=== PATIENT | female | born 1965 | race Caucasian/White ===

== ENCOUNTER → 2016-05-31 | Outpatient (CLI) | payer OTHER ==
[~2016-05-31] MED LIST: FRC; LISI-787 PO; MELA3TAB PO; NORETAB29 PO
== END | disposition home or self-care (01) ==
LOC: C.PAPS 09:02
PROVIDERS: ATTEND Obstetrics & Gynecology
DX: Z01.411 Encounter for gynecological examination (general) (routine) with abnormal findings (principal); R87.610 Atypical squamous cells of undetermined significance on cytologic smear of cervix (ASC-US)

== ENCOUNTER → 2016-07-20 | Outpatient (CLI) | payer OTHER ==
--- NOTE | 2016-07-20 13:18 | MAMMOGRAPHY REPORT ---
UNILATERAL RIGHT DIGITAL DIAGNOSTIC MAMMOGRAM TOMOSYNTHESIS WITH CAD AND TARGETED RIGHT ULTRASOUND: 07/20/2016 CLINICAL HISTORY: 50-year-old woman presents for follow-up in the right breast for probably benign a symmetries and several benign-appearing solid versus cystic masses on ultrasound. TECHNIQUE: Right breast tomosynthesis in addition to standard 2D mammography was performed. Current study was also evaluated with a Computer Aided Detection (CAD) system. COMPARISON: Comparison is made to exams dated: 01/20/2016 ultrasound, 01/20/2016 mammogram, 016 mammogram, 01/10/2015 mammogram, 09/13/2013 mammogram, and 09/07/2013 mammogram - [facility] [address] BREAST COMPOSITION: The tissue of the right breast is extremely dense, which lowers the sensitivity of mammography. FINDINGS: The parenchymal pattern is similar to prior exams. An asymmetry is still identified in th e far posterior right breast, along the posterior nipple line on the CC view, that appears similar d ating back to at least 09/07/2013. With 3 years of stability this is most likely benign. No obviou s new irregular or spiculated mass, focal area of architectural distortion or suspicious microcalcif ications are seen. Real-time high-resolution ultrasound was performed in the 11:00, 12:00 and 6:00 axes of the right br east to reevaluate the benign-appearing solid versus cystic masses as seen on prior ultrasound. In the 6:00 right breast, 1 cm from the nipple, there is an oval parallel circumscribed isoechoic and s lightly hypoechoic solid-appearing mass measuring 5.9 x 3.2 x 6.3 mm, previously 5.5 x 3.9 x 6.5 mm. This is considered unchanged. In the 12:00 right breast, 1 cm from the nipple, there is a lobulat ed hypoechoic solid versus cystic mass measuring 6.1 x 3.3 x 4.8 mm, previously 8.6 x 3.6 x 7.2 mm, and this is slightly decreased in size. In the 12:00 periareolar right breast there is a rounded hy poechoic solid versus cystic mass measuring 3.2 x 2.6 x 3.9 mm, previously 3.6 x 2.8 x 4.6 mm. This is also slightly decreased in size. In the 11:00 right breast, 2 cm from the nipple, there is a lo bulated hypoechoic solid versus cystic mass measuring 5.3 x 3.2 x 5.8 mm, previously 6.2 x 3.2 x 5.1 mm. This is considered unchanged. Incidentally seen in the 9:00 right breast, 4 cm from the nippl e is another isoechoic to hypoechoic solid versus cystic mass measuring 4.0 x 3.0 x 4.2 mm, similar in appearance to the other masses seen in the 6:00, 11:00 and 12:00 axes. These masses could repres ent complicated cysts, fibroadenomas or benign papillomas. However, longer stability is needed and repeat targeted ultrasound in the right breast is recommended in 6 months. IMPRESSION: ACR-BI-RADS CATEGORY 3: PROBABLY BENIGN, TARGETED ULTRASOUND ACR-BI-RADS CATEGORY 3: OR OBABLY BENIGN 1. Stable mammographic appearance of the right breast. Stable to slightly decreased, benign-appear ing solid versus cystic masses in the 11:00, 12:00 and 6:00 axes of the right breast on ultrasound. Another similar appearing mass is seen in the 9:00 axis on the current ultrasound. Although these masses could represent complicated cysts, benign fibroadenomas or benign papillomas, longer stabilit y is needed and repeat targeted ultrasound throughout the right breast in the 6:00, 9:00, 11:00 and 12:00 axes is recommended in 6 months. Annual bilateral mammography will be due at that time. These results and recommendations were discussed with the patient at the time of the exam. Approximately 10% of breast cancers are not detected with mammography. A negative mammographic repor t should not delay biopsy if a clinically suggestive mass is present. Kya Mantilla M.D. ay/:07/20/2016 08:59:01 Director Of Recruitment: Radha DE LA GARZA)(Pinky), [facility] letter sent: Follow Up Recommended 3 BI-RADS Code: ACR-BI-RADS Category 3: Probably Benign Ultrasound BI-RADS: ACR-BI-RADS Category 3: P robably Benign
== END | disposition home or self-care (01) ==
LOC: C.MAMM 07:50
PROVIDERS: ATTEND Obstetrics & Gynecology
DX: N63 Unspecified lump in breast (principal)

== ENCOUNTER → 2016-07-30 | Outpatient (CLI) | payer OTHER ==
[2016-07-30 09:55] LABS: CALCIUM 9.5 mg/dl (8.5-10.1)
[2016-07-30 09:57] LABS: BLOOD UREA NITROGEN 19 mg/dl (7-18); BUN/CREATININE RATIO 26.9 (10-20); CARBON DIOXIDE 27 mmol/L (21-32); CHLORIDE 104 mmol/L (98-107); CHOLESTEROL 202 mg/dl (0-200); CREATININE 0.72 mg/dl (0.60-1.20); GLUCOSE 87 mg/dl (70-99); POTASSIUM 3.8 mmol/L (3.5-5.1); SODIUM 138 mmol/L (136-145); TRIGLYCERIDES 60 mg/dl (0-150); VERY LOW DENSITY LIPOPROT CALC 12 mg/dl
[2016-07-30 10:00] LABS: CHOLESTEROL/HDL RATIO 2.7; HDL CHOLESTEROL 74 mg/dl; LDL CHOLESTEROL CALCULATED 116 mg/dl
== END | disposition home or self-care (01) ==
LOC: C.LAB1850 07:05
PROVIDERS: ATTEND Internal Medicine
DX: I10 Essential (primary) hypertension (principal)

== ENCOUNTER → 2017-01-19 | Outpatient (CLI) | payer OTHER ==
--- NOTE | 2017-01-20 07:48 | MAMMOGRAPHY REPORT ---
BILATERAL DIGITAL DIAGNOSTIC MAMMOGRAM TOMOSYNTHESIS WITH CAD AND TARGETED RIGHT ULTRASOUND: 01/20/20 17 CLINICAL HISTORY: Short interval follow-up of right breast masses. Due for routine mammography of th e left breast. The patient reports no current complaints. TECHNIQUE: Breast tomosynthesis in addition to standard 2D mammography was performed. Current study was also evaluated with a Computer Aided Detection (CAD) system. Bilateral CC and MLO 2-D and tomosy nthesis images were obtained. COMPARISON: Comparison is made to exams dated: 07/20/2016 mammogram, 01/20/2016 ultrasound, 6 mammogram, 01/14/2016 mammogram, 01/10/2015 mammogram, and 09/13/2013 mammogram - [facility]. BREAST COMPOSITION: The tissue of both breasts is extremely dense, which lowers the sensitivity of m ammography. FINDINGS: There are no suspicious masses, calcifications, or areas of architectural distortion noted in either breast. There has been no significant interval change mammographic compared to prior exams . Targeted ultrasound was performed of the area of the previously seen right breast masses for which fo llow-up was recommended. In the right breast at 6:00, 1 cm from the nipple, again noted is an oval p arallel circumscribed slightly hypoechoic mass which measures 5 x 3 x 4 mm, and is not significantly changed dating back to the January 2016 exam. In the right 12:00 breast, 1 cm from the nipple, there is a lobulated hypoechoic circumscribed mass which measures 6 x 4 x 5 mm, and is stable to slightly decreased compared to the January 2016 exam. In the right 12:00 periareolar breast, again noted is a circumscribed hypoechoic 4 x 3 x 4 mm mass, which is not significantly changed dating back to the 2015 exam. In the right breast at 11:00, 2 cm from the nipple, again noted is a circumscribed hypoechoic 6 x 3 x 5 mm mass, also unchanged compared to the January 2016 exam. In the right breast at 9:00, 4 cm from the nipple, there is a similar-appearing slightly hypoechoic circumscribed 4 x 3 x 4 mm mass, which is stable compared to the July 2016 exam. The masses are all similar in appearanc e and are probably benign and may represent complicated cysts or benign-appearing solid masses such a s fibroadenomas. IMPRESSION: ACR-BI-RADS CATEGORY 3: PROBABLY BENIGN, TARGETED ULTRASOUND ACR-BI-RADS CATEGORY 3: PRO BABLY BENIGN 1. No mammographic evidence of malignancy in either breast. 2. Similar-appearing circumscribed hypoechoic masses in the right 6:00, 9:00, 11:00, and 12:00 breas t on ultrasound are stable compared to the prior July 2016 and January 2016 exams and are probably b enign. Recommend follow-up targeted ultrasound in 12 months to confirm longer stability. Annual santiago ateral mammography can be performed at that time. The patient has been verbally notified of the results. Approximately 10% of breast cancers are not detected with mammography. A negative mammographic report should not delay biopsy if a clinically suggestive mass is present. Nanci Rodriguez M.D. ah/:01/19/2017 08:41:24 Body Mechanic: Cathleen MAYNARD(R)(M), [facility] letter sent: Follow Up Recommended 3 BI-RADS Code: ACR-BI-RADS Category 3: Probably Benign Ultrasound BI-RADS: ACR-BI-RADS Category 3: Pr obably Benign
== END | disposition home or self-care (01) ==
LOC: C.MAMM 08:03
PROVIDERS: ATTEND Obstetrics & Gynecology
DX: N63.10 Unspecified lump in the right breast, unspecified quadrant (principal)

== ENCOUNTER → 2017-04-01 | Outpatient (CLI) | payer OTHER ==
[2017-04-01 11:26] LABS: BLOOD UREA NITROGEN 19 mg/dl (7-18); CALCIUM 9.3 mg/dl (8.5-10.1); CARBON DIOXIDE 26 mmol/L (21-32); GLUCOSE 85 mg/dl (70-99); POTASSIUM 3.8 mmol/L (3.5-5.1); SODIUM 136 mmol/L (136-145)
== END | disposition home or self-care (01) ==
LOC: C.LAB1850 09:39
PROVIDERS: ATTEND Internal Medicine
DX: I10 Essential (primary) hypertension (principal)

== ENCOUNTER → 2017-06-03 | Outpatient (CLI) | payer OTHER | END | disposition home or self-care (01) | LOC: C.PAPS 11:21 | PROVIDERS: ATTEND Obstetrics & Gynecology | DX: R87.610 Atypical squamous cells of undetermined significance on cytologic smear of cervix (ASC-US) (principal) ==

== ENCOUNTER → 2017-06-23 | Outpatient (CLI) | payer OTHER ==
[2017-06-23 09:37] LABS: BASO % 0.7 %; BASO ABS # 0.04 K/uL (0-0.2); EOS % 1.9 %; EOS ABS # 0.11 K/uL (0-0.5); HEMATOCRIT 41.7 % (37-47); HEMOGLOBIN 14.1 g/dL (12.0-16.0); IG# 0.01 K/uL (0.00-0.02); LYMPH % 33.3 %; LYMPH ABS # 1.94 K/uL (1.2-3.4); MEAN CELL VOLUME 89.5 fL (80-100); MEAN CORPUSCULAR HEMOGLOBIN 30.3 pg (25-34); MEAN CORPUSCULAR HGB CONC 33.8 g/dl (32-36); MONO ABS # 0.58 K/uL (0.11-0.59); NEUT % 53.9 %; NEUT ABS # 3.14 K/uL (1.4-6.5); PLATELET COUNT 381 K/uL (130-400); RED CELL DISTRIBUTION WIDTH CV 13.1 % (11.5-14.5); RED CELL DISTRIBUTION WIDTH SD 42.7 fL (36.4-46.3); WHITE BLOOD COUNT 5.82 K/uL (4.8-10.8)
[2017-06-23 09:54] LABS: ALBUMIN 3.8 gm/dl (3.4-5.0); BLOOD UREA NITROGEN 14 mg/dl (7-18); CALCIUM 9.4 mg/dl (8.5-10.1); CARBON DIOXIDE 26 mmol/L (21-32); CREATININE 0.65 mg/dl (0.60-1.20); GLUCOSE 91 mg/dl (70-99); POTASSIUM 3.5 mmol/L (3.5-5.1); SODIUM 136 mmol/L (136-145)
[2017-06-23 10:03] LABS: ALKALINE PHOSPHATASE 54 U/L (45-117); ALT/SGPT 25 U/L (12-78); AST/SGOT 12 U/L (15-37); CHOLESTEROL 190 mg/dl (0-200); LDL CHOLESTEROL CALCULATED 103 mg/dl; TOTAL PROTEIN 7.2 gm/dl (6.4-8.2)
== END | disposition home or self-care (01) ==
LOC: C.LAB1850 07:27
PROVIDERS: ATTEND Internal Medicine
DX: R22.1 Localized swelling, mass and lump, neck (principal); I10 Essential (primary) hypertension

== ENCOUNTER → 2017-07-01 | Outpatient (CLI) | payer OTHER ==
--- NOTE | 2017-07-01 16:21 | DIAGNOSTIC IMAGING REPORT ---
ULTRASOUND OF THE THYROID GLAND CLINICAL HISTORY: Neck mass. COMPARISON STUDY: No priors. TECHNIQUE: Real-time, grayscale, and color flow sonography of the thyroid gland is performed utilizing a high-frequency linear transducer. Images are reviewed in the transverse and longitudinal planes. FINDINGS: Right lobe: The right lobe of the thyroid gland is mildly enlarged and homogeneous in echotexture, measuring 5.1 x 2.4 x 3.4 cm. A dominant heterogeneous solid nodule in the midpole measures 4.5 x 2.3 x 3.0 cm. Internal flow is seen on color imaging. Left lobe: The left lobe of the thyroid gland is normal in size and homogeneous in echotexture, measuring 4.9 x 1.2 x 1.4 cm. A 3 mm colloid cyst is incidentally noted in the midpole. Isthmus: The thyroid isthmus is normal in appearance and measures 0.4 cm in AP diameter. IMPRESSION: There is a dominant solid nodule in the right thyroid lobe measuring up to 4.5 cm, which corresponds to the finding of palpable concern. Fine-needle aspiration of this nodule is recommended based on size criteria. Electronically signed by: Fam Torres M.D. 07/01/2017 4:19 PM Dictated Date/Time: 07/01/2017 4:18 PM
== END | disposition home or self-care (01) ==
LOC: C.ULTR 15:40
PROVIDERS: ATTEND Internal Medicine
DX: R22.1 Localized swelling, mass and lump, neck (principal); E04.1 Nontoxic single thyroid nodule

== ENCOUNTER → 2017-07-08 | Outpatient (CLI) | payer OTHER ==
--- NOTE | 2017-07-08 10:34 | Discharge Instructions ---
Discharge Instructions Procedure Procedure Date: Jul 08, 2017. Reason for visit: Solitary Thyroid Nodule,Pt Had U/S On 07/01/17. Discharge Discharge Date: Jul 08, 2017. Discharge Diagnosis: Right lobe thyroid nodule Instructions Activity Recommendations: No limitations Return to School/Work: no limitations Recommended Home Diet: Resume Previous Diet Provider Instructions: US guided fine-needle aspiration of a right lobe thyroid nodule is performed. The procedure was well tolerated. A small hematoma was present at the aspiration site post-procedure. The patient left the department in satisfactory condition. ACTIVITY RECOMMENDATIONS: * Rest today. * Resume regular activity in one day. MEDICATIONS: * May take Tylenol or Ibuprofen as needed for pain. DIET: * Resume previous diet. SPECIAL CARE INSTRUCTIONS: Call your doctor if: * Temperature above 101 degrees F. * Pain not relieved by pain medicine ordered. * Increased drainage or redness from incision. * Notify your doctor with any questions or concerns. Call your doctor or go to the nearest Emergency Department if you experience: * Increased chest pain or shortness of breath. FOLLOW UP VISIT: Follow-up with Referring Physician as scheduled. Allergies Coded Allergies: No Known Allergies (Unverified , 07/12/14) Tyrese Mcrae Recommendations: Call your doctor if: * Temperature above 101 degrees * Pain not relieved by pain medicine ordered * There is increased drainage or redness from any incision * You have any unanswered questions or concerns. Your Doctors Instructions noted above were prepared by provider Fam Torres. Patient Signature Section: Patient Instructions Signature Page Lizzy Lexi Patient (or Guardian) Signature/Date: I have read and understand the instructions given to me by my caregivers. Caregiver/RN/Doctor Signature/Date: The above-named patient and/or guardian has received patient instructions on this date. + Original Patient Signature Page (only) stays with chart. Please make copy for patient.
--- NOTE | 2017-07-08 11:13 | DIAGNOSTIC IMAGING REPORT ---
ULTRASOUND-GUIDED FINE-NEEDLE ASPIRATION THYROID CLINICAL HISTORY: Right lobe thyroid nodule. COMPARISON STUDY: Thyroid ultrasound dated 07/01/2017. PROCEDURE: The risks, benefits, and alternatives to the procedure were discussed with the patient. Written informed consent was obtained. The patient was placed supine in ultrasound, and the 4.5 x 2.2 x 3.2 cm predominantly solid nodule in the right lobe of the thyroid was localized by ultrasound and selected for fine needle aspiration. The right neck was prepped and draped in the usual sterile fashion. The nodule was aspirated under ultrasound guidance with 3 passes utilizing 25-gauge needles. Specimens were reviewed by the pathologist in real-time and deemed adequate for diagnosis. A small hematoma was noted at the aspiration site post procedure. The patient tolerated the procedure well and left the department in satisfactory condition. IMPRESSION: 1. Completed fine-needle aspiration of a right thyroid nodule as above. 2. A small hematoma was noted at the aspiration site post procedure. Electronically signed by: Fam Torres M.D. 07/08/2017 11:11 AM Dictated Date/Time: 07/08/2017 11:10 AM
== END | disposition home or self-care (01) ==
LOC: C.ULTR 09:32
PROVIDERS: ATTEND Internal Medicine
DX: E04.1 Nontoxic single thyroid nodule (principal)

== ENCOUNTER 2019-05-24 05:59 | Observation (INO) ==
[2019-05-24] MEDS ORDERED: ONDANSETRON INJ 2 MG/ML 2 ML VIAL IV STA (06:26)
[2019-05-24] MEDS ORDERED: SODIUM CHLORIDE 0.9% 1000ML 1,000 ML IV SCH (06:30)
[2019-05-24 06:58] LABS: Basophils # (auto) 0.02 K/uL (0-0.2); Basophils % (auto) 0.2 %; Eosinophils # (auto) 0.09 K/uL (0-0.5); Eosinophils % (auto) 0.7 %; Hematocrit (blood only) 41.6 % (37-47); Hemoglobin 14.4 g/dL (12.0-16.0); Immature Granulocytes # (auto) 0.03 K/uL (0.00-0.02); Immature Granulocytes % (auto) 0.2 %; Lymphocytes % (auto) 6.1 %; Mean Corpuscular Hemoglobin 30.4 pg (25-34); Mean Corpuscular Hgb Conc 34.6 g/dL (32-36); Mean Corpuscular Volume 87.9 fL (80-100); Mean Platelet Volume 9.6 fL (7.4-10.4); Monocytes # (auto) 0.69 K/uL (0.11-0.59); Monocytes % (auto) 5.3 %; Neutrophils # (auto) 11.42 K/uL (1.4-6.5); Neutrophils % (auto) 87.5 %; Platelet Count 377 K/uL (130-400); RDW Coefficient of Variation 12.9 % (11.5-14.5); RDW Standard Deviation 41.6 fL (36.4-46.3); Red Blood Count 4.73 M/uL (4.2-5.4); White Blood Count 13.05 K/uL (4.8-10.8)
[2019-05-24 07:06] LABS: Albumin Level 3.9 gm/dl (3.4-5.0); BUN Creatinine Ratio 23.2 (10-20); Calcium 9.7 mg/dl (8.5-10.1); Creatinine Clr Calc Pharmacy 71.6 ml/min; Est GFR (African American) 114.7; Potassium 3.8 mmol/L (3.5-5.1)
[2019-05-24 07:09] LABS: Albumin Globulin Ratio 1.2 (0.9-2); Bilirubin,Total 0.5 mg/dl (0.2-1); Globulin 3.3 gm/dl (2.5-4.0); Total Protein 7.2 gm/dl (6.4-8.2)
--- NOTE | 2019-05-24 07:41 | Ultrasound Report ---
US gallbladder HISTORY: Pain. Nausea. Pt c/o RUQ abd pain COMPARISON: 05/17/2019 FINDINGS: Gallstone filled gallbladder. Gallbladder wall 3 mm. No significant pericholecystic fluid. Common bile duct 6 mm. Liver is uniform. Pancreas and right kidney are unremarkable. No evidence for hydronephrosis. IMPRESSION: 1. Gallstone filled gallbladder. 2. Normal caliber bile ducts. 3. No change compared to the prior study. ACT 112: Negative or not required by law. The above report was generated using voice recognition software. It may contain grammatical, syntax or spelling errors. Electronically signed by: Lv Quinteros M.D. 05/24/2019 7:40 AM
[2019-05-24] MEDS ORDERED: METOCLOPRAMIDE HCL INJ 5 MG/ML 2 ML VIAL IV STA (08:28)
[2019-05-24 09:07] LABS: Appearance Urine Clear (Clear); Bilirubin Urine Negative (Negative); Blood Urine Negative (Negative); Color Urine Yellow; Glucose Urine UA Negative (Negative); Ketones Urine Negative (Negative); Leukocyte Esterase Urine Negative (Negative); Nitrite Urine Negative (Negative); Protein Urine Negative (Negative); Urobilinogen Urine Negative (Negative)
[2019-05-24] MEDS ORDERED: cefOXitin 2,000 MG/60 ML BAG IV STA (09:52)
--- NOTE | 2019-05-24 10:31 | History & Physical Report ---
Date of Service May 24, 2019 Assessment & Plan (1) Gallstones: This is a 53y F with no significant medical history who presents to the [facility] ED with nausea/vomiting, diarrhea, and abdominal pain. Workup with RUQ revealed a gallbladder filled with gallstones. WBC 13. She has been dealing with symptomatic gallstones since what seems to have started around April. Since patient here with worsening symptoms we will proceed to take her to the OR for a planned laparoscopic cholecystectomy with possible cholangiogram. She should remain NPO with IVF and she'll be given pre-op abx. Dr. Casas will be by to obtain surgical consent. History of Present Illness Primary Care Provider: Mauricio Phan MD This is a 53y F who presents to the [facility] ED on 05/24/19 with complaints of abdominal pain, vomiting, and diarrhea. Of significance the patient states she has been dealing with similar symptoms on and off since April. She initially thought it was a GI bug, but since symptoms continued she has been evaluated in the ED. CT on 05/17 showed cholelithiasis and pericholecystic infiltration and RUQ US revealed a gallstone filled gallbladder, no ductal dilation. The patient was sent home from the ED with improved symptoms, followed up in surgery clinic on 05/21 and an elective cholecystectomy was planned. Unfortunately patient developed worsening symptoms overnight which prompted her to come into the ED this AM. She last ate meatloaf and potatoes for dinner yesterday night and subsequently developed epigastric pain radiating to her back, vomiting x4, and diarrhea. In the ED today her WBC is 13, Tbili: 0.5, AST: 11, ALT: 19, Alkp: 81. Patient reports improvement in her symptoms after being medicated with pain and anti-nausea medications, but wishes to proceed with surgery this admission rather than her previously scheduled date if possible. Allergies Allergy/AdvReac Type Severity Reaction Status Date / Time oxycodone Allergy Mild RASH/PRIRIT Verified 05/24/19 06:16 IS pramipexole [From Mirapex] Allergy Hives Verified 05/24/19 06:16 Home Medications Home Medications Medication Instructions Recorded Confirmed Type melatonin 3 mg tablet 3 mg PO HS PRN #30 tab 10/02/18 05/24/19 Rx lisinopril 20 1 tab PO QPM #30 tab 03/20/19 05/24/19 Rx mg-hydrochlorothiazide 12.5 mg tablet ropinirole 1 mg tablet 1 mg PO HS #30 tab 03/21/19 05/24/19 Rx Past Med/Surg History Medical History Abnormal finding on mammography (Inactive) Anxiety Facial skin lesion (Inactive) Hypertension Migraine (Inactive) Restless legs syndrome (Inactive) Seborrheic keratosis Sleep disturbances (Inactive) Thoracic back pain (Inactive) Visual floaters (Inactive) Surgical History H/O partial thyroidectomy (Inactive) Family History Mother Hypertension Myocardial infarction Aunt Breast cancer Grandfather (Maternal) Myocardial infarction Grandfather (Paternal) Myocardial infarction Grandmother (Maternal) Myocardial infarction Other Colon cancer Denies family history of Ovarian cancer Prostate cancer Social History Preferred Language: [place] Communication Ability: Effective Visual Impairment: No Limitations Hearing Ability: Normal marital status: Single current occupational status: employed Feels Safe at Home: Yes Smoking Status: Never smoker Hx Alcohol Use: Yes (social) Hx Substance Use: No Seatbelt Use: always Review of Systems Constitutional: + chills; no fever Respiratory: no shortness of breath Cardiovascular: no chest pain Gastrointestinal: + abdominal pain (upper abdominal pain; & back pain), + nausea, + vomiting and + diarrhea/loose stools Physical Exam Physical Exam: awake/alert Constitutional: well developed and well nourished; no acute distress Respiratory: normal respiratory effort Gastrointestinal (Abdomen): Inspection/Auscultation: abdomen not distended Percussion/Palpation: + abdomen tender (mild ttp in epigastric region) and a bdomen soft; no guarding Results & Data Vital Signs (Past 12 Hours) Vital Signs Temp Pulse Pulse Resp BP BP Pulse Ox 05/24/19 09:00 94 H 18 107/75 96 05/24/19 07:59 108 H 18 134/88 97 05/24/19 06:40 99 05/24/19 06:02 36.7 C 103 H 19 108/77 95 US gallbladder HISTORY: Pain. Nausea. Pt c/o RUQ abd pain COMPARISON: 05/17/2019 FINDINGS: Gallstone filled gallbladder. Gallbladder wall 3 mm. No significant pericholecystic fluid. Common bile duct 6 mm. Liver is uniform. Pancreas and right kidney are unremarkable. No evidence for hydronephrosis. IMPRESSION: 1. Gallstone filled gallbladder. 2. Normal caliber bile ducts. 3. No change compared to the prior study. ACT 112: Negative or not required by law. The above report was generated using voice recognition software. It may contain grammatical, syntax or spelling errors. Electronically signed by: Lv Quinteros M.D. 05/24/2019 7:40 AM Supervising Physician Co-Signing Physician Notes Patient seen and examined, labs and imaging reviewed, agree with above. 53-year-old female seen on Tuesday for what appeared to be chronic cholecystitis. She was planned for surgery in 2 weeks, however last night she started having worsening abdominal pain with nausea and vomiting. She presented to the emergency department after did not resolve. Stable vitals, afebrile. Abdomen tender to palpation in the right upper quadrant and epigastrium. WBC 13,000. Ultrasound reveals multiple gallstones with 3 mm gallbladder wall but no pericholecystic fluid, negative sonographic Jenkins sign. Her pain is slightly improved but she still has some and she is having some nausea. We will plan on performing laparoscopic cholecystectomy for acute on chronic cholecystitis. Possible discharge this afternoon versus tomorrow. Plan for laparoscopic cholecystectomy possible cholangiogram Risks the procedure were discussed to include but not limited to bleeding, infection, retained stone, bile leak, conversion open, damage surrounding structures including common bile duct, need for future more extensive surgery, failure to treat symptoms, and the risk of anesthesia PG Care Time/CCT Total # of Minutes Spent Total Time Spent with Patient: Total time spent is greater than 50% in coordination of care (as documented) at patient's floor/unit and/or counseling patient: Coding Level of Care Code 19890 OBS Care - Level 3 Diagnoses Gallstones K80.20
[2019-05-24] MEDS ORDERED: PROPOFOL IV EMULSION 10 MG/ML 20 ML VIAL IV ONE (11:45)
[2019-05-24] MEDS ORDERED: ROCURONIUM BROMIDE 10 MG/ML 5 ML VIAL ONE (11:45)
[2019-05-24] MEDS ORDERED: LIDOCAINE HCL 2% 2 ML VIAL/AMP(20MG/ML) INFIL ONE (11:45)
[2019-05-24] MEDS ORDERED: ONDANSETRON INJ 2 MG/ML 2 ML VIAL ONE (11:45)
[2019-05-24] MEDS ORDERED: fentaNYL citrate 100 MCG/2 ML VIAL ONE ×2 (11:45→12:43)
[2019-05-24] MEDS ORDERED: MIDAZOLAM HCL 1 MG/ML 2ML VIAL ONE (11:45)
[2019-05-24] MEDS ORDERED: BUPIVACAINE 0.5 % 5 MG/1 ML MPF 30ML VIAL ONE (11:48)
[2019-05-24] MEDS ORDERED: ATROPINE SULFATE 0.1 MG/ML 10ML SYR IV PRN (11:58)
[2019-05-24] MEDS ORDERED: HYDROmorphone INJ 2 MG/ML SYR/VIAL IV PRN (11:58)
[2019-05-24] MEDS ORDERED: ONDANSETRON INJ 2 MG/ML 2 ML VIAL IV PRN ×2 (11:58→16:43)
[2019-05-24] MEDS ORDERED: ePHEDrine sulfate 50 MG/ML AMP IV PRN (11:58)
[2019-05-24] MEDS ORDERED: fentaNYL citrate 100 MCG/2 ML VIAL IV PRN (11:58)
--- NOTE | 2019-05-24 11:58 | Anesthesiology Consultation ---
Date of Service May 24, 2019 Assessment & Plan ASA ASA2 Proposed Anesthesia Anesthesia Type: General Risk / Benefits Reviewed With: PT / POA / Parent / Guardian, Accepts Plan and Informed Consent Obtained History Surgery Operation Date: 05/24/19 11:00 Proposed Procedures p Laparoscopic Cholecystectomy, Possible Cholangiogram - Kaleb Casas DO, FACS Height/Weight Height: 5 ft 1 in Weight: 56.6 kg Allergies Allergy/AdvReac Type Severity Reaction Status Date / Time oxycodone Allergy Mild RASH/PRIRIT Verified 05/24/19 06:16 IS pramipexole [From Mirapex] Allergy Hives Verified 05/24/19 06:16 Medications Home Medications Medication Instructions Recorded Confirmed Last Taken melatonin 3 mg tablet 3 mg PO HS PRN #30 tab 10/02/18 05/24/19 Unknown lisinopril 20 1 tab PO QPM #30 tab 03/20/19 05/24/19 Unknown mg-hydrochlorothiazide 12.5 mg tablet ropinirole 1 mg tablet 1 mg PO HS #30 tab 03/21/19 05/24/19 Unknown NPO Date Last Intake of Fluids: 05/23/19 Time Last Intake of Fluids: 22:00 Date Last Intake of Solids: 05/23/19 Time Last Intake of Solids: 17:00 Past Medical History Medical History Abnormal finding on mammography (Inactive) Anxiety Facial skin lesion (Inactive) Hypertension Migraine (Inactive) Restless legs syndrome (Inactive) Seborrheic keratosis Sleep disturbances (Inactive) Thoracic back pain (Inactive) Visual floaters (Inactive) Exercise / Class Metabolic Activity 1 > 8 Run/Swim/Ski/Tennis Past Family History Family History Mother Hypertension Myocardial infarction Aunt Breast cancer Grandfather (Maternal) Myocardial infarction Grandfather (Paternal) Myocardial infarction Grandmother (Maternal) Myocardial infarction Other Colon cancer Denies family history of Ovarian cancer Prostate cancer Past Surgical History Surgical History H/O partial thyroidectomy (Inactive) Past Anesthesia History No Hx of Anesthesia Complications and No Family Hx of Anesthesia Complications History of PONV No Hx of PONV and No Hx of Motion Sickness Social History Smoking Status: Never smoker Hx Alcohol Use: Yes (social) Hx Substance Use: No Review of Systems denies fever/cough/ colds/ chest pain/ SOB/ DANIEL Constitutional: no fever and no chills Respiratory: no cough and no dyspnea denies DANIEL Cardiovascular: no chest pain and no dyspnea on exertion Physical Exam Vital Signs Last Vital Signs Temp 36.6 C 05/24/19 10:53 Pulse 85 05/24/19 10:53 Resp 20 05/24/19 10:53 BP 104/72 05/24/19 10:53 Pulse Ox 96 05/24/19 10:53 ENMT Mouth: no TMJ abnormality and no dentition abnormality Thyromental Distance: > or= 3.5 Finger Breadths Mallampati Class: III Neck neck extension not limited Respiratory normal respiratory effort; no respiratory distress Auscultation: lungs clear to auscultation bilaterally Cardiovascular Rate/Rhythm: regular rate and regular rhythm Neurologic moves all extremities Psychiatric Orientation: alert and oriented x 3 Testing Laboratory Results 05/24/19 06:33 05/24/19 06:33 Urine Color Yellow 05/24/19 08:35 Urine Appearance Clear (Clear) 05/24/19 08:35 Urine pH 7.0 (4.5-7.5) 05/24/19 08:35 Ur Specific [place] 1.010 (1.000-1.030) 05/24/19 08:35 Urine Protein Negative (Negative) 05/24/19 08:35 Urine Glucose (UA) Negative (Negative) 05/24/19 08:35 Urine Ketones Negative (Negative) 05/24/19 08:35 Urine Nitrite Negative (Negative) 05/24/19 08:35 Ur Leukocyte Esterase Negative (Negative) 05/24/19 08:35
--- NOTE | 2019-05-24 12:38 | Emergency Department Note ---
Entered by Esperanza Holt acting as a scribe for History of Present Illness General Chief complaint: Abdominal Pain Stated complaint: GALL BLADDER ATTACK? Time Seen by Provider: 05/24/19 06:20 Source: patient History of Present Illness Onset (ago): day(s) 1 Location: abdomen Radiation: back Severity: similar to prior episodes Pain Consistency: + other (persistent) Maximum Pain Intensity: 4 Quality: + other (abdominal pain) Associated symptoms: + nausea/vomiting and + other (abdominal pain, diarrhea) Treatments prior to arrival: none The patient is a 53 year old female presenting to the Emergency Department complaining of persistent abdominal pain starting 1 day ago. The patient reports that she has abdominal pain that is radiating to her back. She states that she is nauseous and has been vomiting. She explains that she has been experiencing diarrhea through the night about every 30 minutes. 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 She adds that she has experienced these symptoms before and contributes them to her gallbladder. The patient reports that she came to the [facility] Emergency Department 7 days ago for these symptoms. She states that she has an outpatient surgery scheduled for 06/06/2019. She notes that she last ate food during dinner yesterday evening. Home Medications Home Medications Medication Instructions Recorded Confirmed Type melatonin 3 mg tablet 3 mg PO HS PRN #30 tab 10/02/18 05/24/19 Rx lisinopril 20 1 tab PO QPM #30 tab 03/20/19 05/24/19 Rx mg-hydrochlorothiazide 12.5 mg tablet ropinirole 1 mg tablet 1 mg PO HS #30 tab 03/21/19 05/24/19 Rx Allergies Allergy/AdvReac Type Severity Reaction Status Date / Time oxycodone Allergy Mild RASH/PRIRIT Verified 05/24/19 06:16 IS pramipexole [From Mirapex] Allergy Hives Verified 05/24/19 06:16 Past Med/Surg History Medical History Abnormal finding on mammography (Inactive) Anxiety Facial skin lesion (Inactive) Hypertension Migraine (Inactive) Restless legs syndrome (Inactive) Seborrheic keratosis Sleep disturbances (Inactive) Thoracic back pain (Inactive) Visual floaters (Inactive) Surgical History H/O partial thyroidectomy (Inactive) Family History Mother Hypertension Myocardial infarction Aunt Breast cancer Grandfather (Maternal) Myocardial infarction Grandfather (Paternal) Myocardial infarction Grandmother (Maternal) Myocardial infarction Other Colon cancer Denies family history of Ovarian cancer Prostate cancer Social History Preferred Language: Moroccan Communication Ability: Effective Visual Impairment: No Limitations Hearing Ability: Normal marital status: Single current occupational status: employed Feels Safe at Home: Yes Smoking Status: Never smoker Hx Alcohol Use: Yes (social) Hx Substance Use: No Seatbelt Use: always Review of Systems See HPI for pertinent positives & negatives. and A total of 10 systems reviewed and were otherwise negative Physical Exam Vital Signs Vital Signs - 24 hr 05/24/19 06:02 05/24/19 06:40 05/24/19 07:59 Temperature 36.7 C Temperature Source Oral Pulse Rate 103 H Pulse Rate [Apical] 108 H Pulse Rhythm [Apical] Pulse Strength [Apical] Respiratory Rate 19 18 Respiratory Effort / Characteristics Non-Labored Spontaneous Respiratory Depth Normal Respiratory Pattern Blood Pressure 108/77 Blood Pressure [Left Arm] 134/88 Blood Pressure Mean 87 Blood Pressure Mean [Left Arm] 103 Blood Pressure Position Sitting Blood Pressure Position [Left Arm] Pulse Oximetry 95 99 97 Oxygen Delivery Method Room Air Room Air Room Air Sepsis Recent Fever Within 48 Hours No Sepsis Action Taken by Nursing No Action Required 05/24/19 09:00 05/24/19 10:53 Temperature 36.6 C Temperature Source Oral Pulse Rate Pulse Rate [Apical] 94 H 85 Pulse Rhythm [Apical] Regular Pulse Strength [Apical] Normal Respiratory Rate 18 20 Respiratory Effort / Characteristics Non-Labored Spontaneous Respiratory Depth Normal Respiratory Pattern Regular Blood Pressure Blood Pressure [Left Arm] 107/75 104/72 Blood Pressure Mean Blood Pressure Mean [Left Arm] 85 82 Blood Pressure Position Blood Pressure Position [Left Arm] Sitting Pulse Oximetry 96 96 Oxygen Delivery Method Room Air Room Air Sepsis Recent Fever Within 48 Hours Sepsis Action Taken by Nursing GENERAL: Awake, alert, well-appearing, in no acute distress HENT: Normocephalic, atraumatic. Oropharynx unremarkable. EYES: Normal conjunctiva. Sclera non-icteric. NECK: Supple. No nuchal rigidity. FROM. No JVD. RESPIRATORY: Clear to auscultation. CARDIAC: Regular rate, normal rhythm. Extremities warm and well perfused. Pulses equal. ABDOMEN: Soft, non-distended. No tenderness to palpation. No rebound or guarding. No masses. RECTAL: Deferred. MUSCULOSKELETAL: Chest examination reveals no tenderness. The back is symmetrical on inspection without obvious abnormality. There is no CVA tenderness to palpation. No joint edema. LOWER EXTREMITIES: Calves are equal size bilaterally and non-tender. No edema. No discoloration. NEURO: Normal sensorium. No sensory or motor deficits noted. SKIN: No rash or jaundice noted. Course Course 621: The patient was evaluated in room C10, and a complete history and physical examination were performed. 0950: I discussed the patients case with Dr. Casas general surgeon. He reports that one of his PA-Cs will come and evaluate the patient. 1012: I discussed the patients case with Dr. Augusto SALAZAR. Dr. Casas will evaluate the patients case for further management. 1015: I updated the patient and her family at this time. Administered Medications Discontinued Medications Sodium Chloride (Nss 1000ml) 1,000 mls @ 999 mls/hr IV .Q1H1M ALEXIS Stop: 05/24/19 07:30 Last Infusion: 05/24/19 07:45 Dose: 0 mls/hr Documented by: [id number] Admin: 05/24/19 06:40 Dose: 999 mls/hr Documented by: [id number] Cefoxitin Sodium (Mefoxin) 2,000 mg in 60 mls @ 100 mls/hr IV NOW STA Stop: 05/24/19 10:27 Last Admin: 05/24/19 12:05 Dose: 100 mls/hr Documented by: [id number] Metoclopramide HCl (Reglan) 10 mg IV NOW STA Stop: 05/24/19 08:29 Last Admin: 05/24/19 08:34 Dose: 10 mg Documented by: [id number] Ondansetron HCl (Zofran) 4 mg IV NOW STA Stop: 05/24/19 06:27 Last Admin: 05/24/19 06:40 Dose: 4 mg Documented by: [id number] Medical Decision Making Differential Diagnosis Differential diagnoses includes but is not limited to gastritis, peptic ulcer disease, GERD, gallbladder disease, pancreatitis, small bowel obstruction, acute coronary syndrome, pericarditis, ischemic bowel, irritable bowel disease, irritable bowel syndrome, appendicitis, diverticulitis, malignancy, hernia, urinary tract infection, torsion, /ectopic , perforation, trauma, infectious. Medical Records Attestation: I reviewed the patient's medical records. Home Medications Current Medication List: was personally reviewed by me Laboratory Data Attestation: I reviewed the patient's lab results. Result diagrams: 05/24/19 06:33 05/24/19 06:33 Lab Results 05/24/19 05/24/19 05/24/19 Range/Units 06:33 06:33 08:35 WBC 13.05 H (4.8-10.8) K/uL RBC 4.73 (4.2-5.4) M/uL Hgb 14.4 (12.0-16.0) g/dL Hct 41.6 (37-47) % MCV 87.9 (80-100) fL MCH 30.4 (25-34) pg MCHC 34.6 (32-36) g/dL RDW Std Deviation 41.6 (36.4-46.3) fL RDW Coeff of [place] 12.9 (11.5-14.5) % Plt Count 377 (130-400) K/uL MPV 9.6 (7.4-10.4) fL Immature Gran % (Auto) 0.2 % Neut % (Auto) 87.5 % Lymph % (Auto) 6.1 % [place] % (Auto) 5.3 % Eos % (Auto) 0.7 % Baso % (Auto) 0.2 % Immature Gran # (Auto) 0.03 H (0.00-0.02) K/uL Neut # (Auto) 11.42 H (1.4-6.5) K/uL Lymph # (Auto) 0.80 L (1.2-3.4) K/uL [place] # (Auto) 0.69 H (0.11-0.59) K/uL Eos # (Auto) 0.09 (0-0.5) K/uL Baso # (Auto) 0.02 (0-0.2) K/uL Sodium 137 (136-145) mmol/L Potassium 3.8 (3.5-5.1) mmol/L Chloride 105 (98-107) mmol/L Carbon Dioxide 26 (21-32) mmol/L Anion Gap 6.0 (3-11) BUN 16 (7-18) mg/dl Creatinine 0.67 (0.6-1.2) mg/dl Est Cr Clr Drug Dosing 71.6 ml/min Est GFR ( Amer) 114.7 Est GFR (Non-Af Amer) 99.0 BUN/Creatinine Ratio 23.2 H (10-20) Glucose 101 H (70-99) mg/dl Calcium 9.7 (8.5-10.1) mg/dl Total Bilirubin 0.5 (0.2-1) mg/dl AST 11 L (15-37) U/L ALT 19 (12-78) U/L Alkaline Phosphatase 81 (45-117) U/L Total Protein 7.2 (6.4-8.2) gm/dl Albumin 3.9 (3.4-5.0) gm/dl Globulin 3.3 (2.5-4.0) gm/dl Albumin/Globulin Ratio 1.2 (0.9-2) Lipase 90 (73-393) U/L Urine Color Yellow Urine Appearance Clear (Clear) Urine pH 7.0 (4.5-7.5) Ur Specific [place] 1.010 (1.000-1.030) Urine Protein Negative (Negative) Urine Glucose (UA) Negative (Negative) Urine Ketones Negative (Negative) Urine Blood Negative (Negative) Urine Nitrite Negative (Negative) Urine Bilirubin Negative (Negative) Urine Urobilinogen Negative (Negative) Ur Leukocyte Esterase Negative (Negative) Imaging Data Radiologist's Impression: Radiology results as stated below per my review and t he radiologist's interpretation: US gallbladder HISTORY: Pain. Nausea. Pt c/o RUQ abd pain COMPARISON: 05/17/2019 FINDINGS: Gallstone filled gallbladder. Gallbladder wall 3 mm. No significant pericholecystic fluid. Common bile duct 6 mm. Liver is uniform. Pancreas and right kidney are unremarkable. No evidence for hydronephrosis. IMPRESSION: 1. Gallstone filled gallbladder. 2. Normal caliber bile ducts. 3. No change compared to the prior study. ACT 112: Negative or not required by law. The above report was generated using voice recognition software. It may contain grammatical, syntax or spelling errors. Electronically signed by: Lv Quinteros M.D. 05/24/2019 7:40 AM Blood Pressure Blood Pressure Findings: Elevated blood pressure Blood Pressure Disposition: further management by hospitalist QING Kumar This is a 53-year-old female who presents emergency department complaining of epigastric pain. Using shared medical decision making further with the patient she was sent for an ultrasound of the gallbladder which does not show any evidence of acute cholecystitis however she does have an elevation in her white blood cell count. I did discuss the case with the surgeon on-call who agreed to see the patient. Patient was in agreement with the treatment plan. Impression & Plan Gallstones Discharge Plan Visit Data *Final* Discharge Date/Time: 05/24/19 10:33 Chief Complaint: Abdominal Pain Stated Complaint: GALL BLADDER ATTACK? ED Provider: Dhruv Dominguze Discharge Problem: Gallstones Patient Disposition: Still a Patient Discharge Instructions Interventions: ED Discharge Assessment Last Done: 05/24/19 10:33 The scribe's documentation has been prepared under my direction and personally reviewed by me in its entirety. I confirm that the note above accurately reflects all work, treatment, procedures, and medical decision making performed by me.
[2019-05-24] MEDS ORDERED: CONRAY 60% 50 ML VIAL ONE (13:01)
[2019-05-24] MEDS ORDERED: GLYCOPYRROLATE 0.2 MG/ML VIAL ONE (13:36)
[2019-05-24] MEDS ORDERED: PHENYLEPHRINE HCL 10 MG/ML VIAL ONE (13:36)
[2019-05-24] MEDS ORDERED: NEOSTIGMINE METHYLSULFATE 5 MG/5 ML SYR ONE (13:36)
--- NOTE | 2019-05-24 14:00 | Operative Report ---
PG Post Operative Report Pre & Post Diagnosis Operation Date: 05/24/19 11:00 Pre-Op Diagnosis: Gallbladder Stones Post-Op Diagnosis: Cholelithiasis with cholecystitis, liver cyst I identified the patient and participated in the time-out.: Yes Procedure Operation Date: 05/24/19 11:00 Actual Procedures p Laparoscopic Cholecystectomy, excision liver cyst (Not Applicable) - Kaleb Casas DO, ELEONORA Surgeon Kaleb Casas DO, ELEONORA Physician Assistant Surgery Nik Araujo Estimated Blood Loss 10 Findings Consistent with Post-Op Diagnosis Acute on chronic cholecystitis. Critical view of safety obtained, cystic duct and artery doubly clipped and divided. During dissection, a cystic structure was encountered in the liver sulcus. This was completely dissected and excised. Good hemostasis. A drain was placed. Specimens Gallbladder Liver cyst Drains 10 mm MAHNAZ drain in gallbladder fossa Anesthesia Type General Complications none Disposition Accompanied Patient To Recovery: No Disposition: Recovery Room Indications 53-year-old female with cholelithiasis and chronic cholecystitis presented to the emergency department with worsening abdominal pain. Plan for laparoscopic cholecystectomy with possible cholangiogram. The risks of the procedure were discussed, all questions were answered, and the patient agreed to proceed with surgery as planned. Description of Procedure The patient was properly identified, consented, and taken to the operating room where she was placed in the supine position. General endotracheal anesthesia was induced. SCDs and a safety belt were placed. Preoperative antibiotics were administered. The patient's abdomen was prepped and draped in the standard sterile fashion. A surgical timeout was performed and all parties were in agreement that this was the correct patient and procedure to be performed and we continued as planned. An incision was made superior and to the left of the umbilicus overlying the rectus muscle and the Veress needle was inserted. Saline drop test confirmed entry into the peritoneum. The abdomen was insufflated with carbon dioxide which the patient tolerated without incident. The abdomen was then entered using the Optiview technique and a 5 mm trocar. The laparoscope was inserted and no damage from initial trocar or Veress needle placement was noted, no gross abnormalities were noted within the 4 quadrants of the abdomen. An 11 mm port was placed in the subxiphoid position and two 5 mm ports were then placed in the right subcostal position. The patient was placed in reverse Trendelenburg position and rotated towards the left. The gallbladder was acutely inflamed. The dome of the gallbladder was retracted towards the left upper quadrant and the infundibulum was retracted toward the right lower quadrant revealing Calot's triangle. Peritoneal attachments were taken down with electrocautery and blunt dissection. The cystic duct and artery were circumferentially dissected. A window of safety was obtained showing the cystic duct entering the gallbladder with no aberrant structures noted. The cystic duct and artery were doubly clipped and divided. The gallbladder was then lifted off the gallbladder fossa with electrocautery. During the dissection a cystic type structure was encountered and incidentally entered in some cloudy fluid was expressed. Unsure as to the nature of the structure we attempted a cholangiogram but this was obviously a blind-ending sac and we are unable to thread the catheter anymore. After further dissection we were able to excise it in its entirety. This appeared to be a simple liver cyst. Hemostasis was excellent. We completed the gallbladder dissection. The gallbladder was placed in an Endo Catch bag and removed through the subxiphoid port site. The right upper quadrant was irrigated and hemostasis was found to be good. A 10 mm flat MAHNAZ drain was then placed into the abdomen and exited through the right infracostal incision and rested in the gallbladder fossa. 5 mm trochars were removed under direct visualization and the abdomen was allowed to collapse. The subxiphoid port site fascia was closed with 0 Vicryl suture. The wound was irrigated, and the skin of all ports was closed with 4-0 Monocryl subcuticular sutures. Dermabond was placed over the wounds. The patient was extubated in the operating room and taken to the PACU where she recovered without apparent incident. All sponge, instrument and needle counts were correct at the conclusion of the procedure. The patient tolerated the procedure well. The physician's executive personal assistant was present and scrubbed for the entirety of the case and was essential in positioning the patient, prepping and draping, retraction and exposure, driving the laparoscope, removal of the gallbladder, closure the incisions, and placement of the dressings. I attest to the content of the Intraoperative Record and any orders documented therein. Any exceptions are noted below.
[2019-05-24] MEDS ORDERED: PROMETHAZINE HCL 12.5 MG in SODIUM CHLORIDE 0.9% 50 ML IV PRN (14:34)
--- NOTE | 2019-05-24 14:35 | Anesthesiology Progress Note ---
Date of Service May 24, 2019 Anesthesia Post Procedure Vital Signs Vital Signs: Temp Pulse Pulse Resp BP BP Pulse Ox 05/24/19 14:30 78 17 131/81 99 05/24/19 14:20 71 15 130/80 99 05/24/19 14:12 36.7 C 86 16 129/74 99 05/24/19 10:53 36.6 C 85 20 104/72 96 05/24/19 09:00 94 H 18 107/75 96 05/24/19 07:59 108 H 18 134/88 97 05/24/19 06:40 99 05/24/19 06:02 36.7 C 103 H 19 108/77 95 Transfer of Care Handoff Completed per policy Notes Mental Status: alert / awake / arousable and participated in evaluation Patient Amnestic to Procedure: Yes Nausea / Vomiting: adequately controlled Pain: adequately controlled Airway Patency, RR, SpO2: stable & adequate BP & HR: stable & adequate Hydration State: stable & adequate Anesthetic Complications: no major complications apparent and Pt Satisfied with anesthetic care
[2019-05-24] MEDS ORDERED: MoRPHine SULFATE 2 MG/ML CARP IV PRN (15:28)
[2019-05-24] MEDS ORDERED: MoRPHine SULFATE 4 MG/ML 1 ML CARP\\VIAL IV PRN (15:28)
[2019-05-24] MEDS: LACTATED RINGER'S 1,000 ML IV SCH ×2 (15:47→21:27)
[2019-05-24] MEDS ORDERED: LISINOPRIL/HCTZ 20/12.5MG 1 TAB TAB PO SCH (21:00)
[2019-05-25] MEDS: LACTATED RINGER'S 1,000 ML IV SCH (06:10)
[2019-05-25] MEDS ORDERED: PNEUMOCOCCAL Polysaccharide Vaccine 25mcg/0.5mL vial/Syr IM ONE (07:15)
[2019-05-25] MEDS ORDERED: OXYCODONE HCL IR 5 MG TAB (IMMEDIATE RELEASE) PO PRN (07:28)
--- NOTE | 2019-05-25 07:28 | Surgery Progress Note ---
Date of Service May 25, 2019 Assessment & Plan (1) Gallstones: POD 1 lap flor labs pending advance diet likely d/c later Supervising Physician Co-Signing Physician Notes Patient seen and examined, labs reviewed, agree with above. 53-year-old female POD #1 laparoscopic cholecystectomy and excision of liver cyst for acute cholecystitis and incidental liver cyst finding. Doing well, ambulating, tolerated diet with no nausea or pain. Drain serosanguineous with minimal output. Labs normal. Plan to DC drain, DC to home, follow-up in clinic in 2 weeks. Subjective no c/o, nausea resolved Physical Exam Gastrointestinal (Abdomen): Percussion/Palpation: abdomen soft MAHNAZ 30 cc overnight, serous Results & Data Vital Signs (Past 12 Hours) Vital Signs Temp Pulse Resp BP Pulse Ox 05/25/19 03:18 37.0 C 87 16 125/83 96 05/24/19 22:51 37 C 72 16 128/83 95 PG Care Time/CCT Total # of Minutes Spent Total Time Spent with Patient: Total time spent is greater than 50% in coordination of care (as documented) at patient's floor/unit and/or counseling patient: Coding Level of Care Code None Diagnoses Gallstones K80.20
[2019-05-25] MEDS ORDERED: TRAMADOL HCL 50 MG TABLET PO PRN (07:30)
--- NOTE | 2019-05-25 07:52 | Anesthesiology Progress Note ---
Date of Service May 25, 2019 Anesthesia Post Procedure Vital Signs Vital Signs: Temp Pulse Pulse Resp BP Pulse Ox 05/25/19 07:43 36.9 C 82 16 122/84 96 05/25/19 03:18 37.0 C 87 16 125/83 96 05/24/19 22:51 37 C 72 16 128/83 95 05/24/19 18:28 36.9 C 85 16 133/84 95 05/24/19 17:27 37.2 C 85 16 120/71 96 05/24/19 16:30 36.9 C 79 16 131/82 95 05/24/19 16:01 36.8 C 77 16 126/79 96 05/24/19 15:10 71 18 134/82 100 05/24/19 15:00 72 17 128/81 99 05/24/19 14:50 36.8 C 77 18 133/82 99 05/24/19 14:40 69 19 130/79 99 05/24/19 14:30 78 17 131/81 99 05/24/19 14:20 71 15 130/80 99 05/24/19 14:12 36.7 C 86 16 129/74 99 05/24/19 10:53 36.6 C 85 20 104/72 96 05/24/19 09:00 94 H 18 107/75 96 05/24/19 07:59 108 H 18 134/88 97 Pain Intensity Abdomen: Pain Intensity: 5 Notes Mental Status: alert / awake / arousable and participated in evaluation Patient Amnestic to Procedure: Yes Nausea / Vomiting: adequately controlled Pain: adequately controlled Airway Patency, RR, SpO2: stable & adequate BP & HR: stable & adequate Hydration State: stable & adequate Anesthetic Complications: no major complications apparent and Pt Satisfied with anesthetic care
[2019-05-25 08:13] LABS: Basophils # (auto) 0.01 K/uL (0-0.2); Basophils % (auto) 0.2 %; Hematocrit (blood only) 37.7 % (37-47); Hemoglobin 12.6 g/dL (12.0-16.0); Immature Granulocytes # (auto) 0.01 K/uL (0.00-0.02); Immature Granulocytes % (auto) 0.2 %; Lymphocytes # (auto) 0.86 K/uL (1.2-3.4); Lymphocytes % (auto) 13.1 %; Mean Corpuscular Hemoglobin 29.7 pg (25-34); Mean Corpuscular Hgb Conc 33.4 g/dL (32-36); Mean Corpuscular Volume 88.9 fL (80-100); Mean Platelet Volume 9.4 fL (7.4-10.4); Monocytes # (auto) 0.77 K/uL (0.11-0.59); Monocytes % (auto) 11.7 %; Neutrophils # (auto) 4.93 K/uL (1.4-6.5); Neutrophils % (auto) 74.8 %; Platelet Count 292 K/uL (130-400); RDW Coefficient of Variation 13.4 % (11.5-14.5); RDW Standard Deviation 43.4 fL (36.4-46.3); Red Blood Count 4.24 M/uL (4.2-5.4); White Blood Count 6.58 K/uL (4.8-10.8)
[2019-05-25 08:52] LABS: Alanine Aminotransferase 55 U/L (12-78); Albumin Level 3.1 gm/dl (3.4-5.0); Alkaline Phosphatase 75 U/L (45-117); Aspartate Aminotransferase 48 U/L (15-37); BUN Creatinine Ratio 14.4 (10-20); Bilirubin Direct < 0.1 mg/dl (0-0.2); Bilirubin,Total 0.4 mg/dl (0.2-1); Blood Urea Nitrogen 8 mg/dl (7-18); Calcium 9.3 mg/dl (8.5-10.1); Carbon Dioxide 27 mmol/L (21-32); Chloride 106 mmol/L (98-107); Creatinine Clr Calc Pharmacy 82.7 ml/min; Est GFR (African American) 120.3; Est GFR (Non-African American) 103.8; Glucose 92 mg/dl (70-99); Potassium 3.7 mmol/L (3.5-5.1); Sodium 137 mmol/L (136-145); Total Protein 5.9 gm/dl (6.4-8.2)
--- NOTE | 2019-05-25 15:29 | Discharge Summary ---
Date of Service May 25, 2019 Admission HPI Per Admitting Provider This is a 53y F who presents to the [facility] ED on 05/24/19 with complaints of abdominal pain, vomiting, and diarrhea. Of significance the patient states she has been dealing with similar symptoms on and off since April. She initially thought it was a GI bug, but since symptoms continued she has been evaluated in the ED. CT on 05/17 showed cholelithiasis and pericholecystic infiltration and RUQ US revealed a gallstone filled gallbladder, no ductal dilation. The patient was sent home from the ED with improved symptoms, followed up in surgery clinic on 05/21 and an elective cholecystectomy was planned. Unfortunately patient developed worsening symptoms overnight which prompted her to come into the ED this AM. She last ate meatloaf and potatoes for dinner yesterday night and subsequently developed epigastric pain radiating to her back, vomiting x4, and diarrhea. In the ED today her WBC is 13, Tbili: 0.5, AST: 11, ALT: 19, Alkp: 81. Patient reports improvement in her symptoms after being medicated with pain and anti-nausea medications, but wishes to proceed with surgery this admission rather than her previously scheduled date if possible. Principal Diagnosis Cholelithiasis, cholecystitis Discharge Exam Gastrointestinal (Abdomen) Inspection/Auscultation: + abdominal surgical incision (clean, dry) and + abdominal surgical drain present (serous drainage) Percussion/Palpation: abdomen soft Discharge Data Allergies Allergy/AdvReac Type Severity Reaction Status Date / Time oxycodone Allergy Mild RASH/PRIRIT Verified 05/24/19 06:16 IS pramipexole [From Mirapex] Allergy Hives Verified 05/24/19 06:16 Consultations 05/24/19 10:13 Consult General Surgery Stat Procedures Performed Operation Date: 05/24/19 11:00 Actual Procedures p Laparoscopic Cholecystectomy (Not Applicable) - Kaleb Casas, , FACS Ordered Studies 05/24/19 06:26 US gallbladder Stat Hospital Course (1) Gallstones: 53 y/o female scheduled for outpatient cholecystectomy presented to the ED with increasing symptoms. She was taken to the OR later that afternoon for laparoscopic cholecystectomy. The procedure was well tolerated. A small liver cyst adjacent to the cystic duct was excised and a yajaira drain was placed. She was observed overnight on the surgical floor. The next day she was able to tolerate advancing diet and Ultram for pain. Drainage was serous and the drain was removed. She was stable for discharge in the afternoon. Total Time Total Time Spent Total Time Spent (In Minutes): 10 Discharge Plan Discharge Items Patient Disposition: Home - Self-Care Reason For Visit: CHOLELITHIASIS Discharge Diagnosis: laparoscopic cholecystectomy Activity: Per Instructions section Lifting: No more than 10 pounds Bathing Comment: may shower tomorrow-05/25/19; no soaking in tubs Exercise/Sports: Wait until after follow-up appointment Non-emergency contact: Surgeon Call non-emergency contact if: you have any medication questions, your symptoms worsen, your pain is not controlled, your pain is worsening, your pain is concerning for you, you have a fever, your temperature is above 101.5, your wound has increased redness, your wound has increased drainage and your wound pain has increased Follow-up/Referrals: Mauricio Phan MD [Primary Care Provider] - 06/01/19 11:20 am Kaleb Casas DO, FACS [Physician] - (Please call to schedule follow up in clinic within 2 weeks) Diet: Regular Addtl Attending Provider Instructions: Pending Studies at Discharge: Yes Studies:: surgical pathology Stand-Alone Forms: My [facility] Medications and DC Order Prescriptions: New tramadol [Ultram] 50 mg tablet 50 - 100 mg PO Q4H PRN (Reason: pain) Qty: 15 RF: 0 Continued melatonin 3 mg tablet 3 mg PO HS PRN (Reason: sleep) Qty: 30 RF: 0 lisinopril-hydrochlorothiazide 20-12.5 mg tablet 1 tab PO QPM Qty: 30 RF: 5 ropinirole 1 mg tablet 1 mg PO HS Qty: 30 RF: 5 Discharge Orders: Discharge Order (Routine); Ordered 05/25/19 Ordered By: Nik Araujo Admission Data Admit Date/Time: 05/24/19 15:28 Attending Provider: Kaleb Casas Admit Provider: Kaleb Casas Primary Care Provider: Mauricio Phan V. Other Providers: Kaleb Casas Other Interventions: Discharge Summary Assessment (RN) Last Done: 05/25/19 14:21 Coding Level of Care Code D/C Day Management <30 mins Diagnoses Gallstones K80.20
== END 2019-05-25 16:55 | disposition home or self-care (01) ==
LOC: ED 05:59 → ASU 10:33 → 3N 10:33